=== PATIENT | female | born 1945 | race Caucasian/White ===

== ENCOUNTER → 2017-01-04 | Outpatient (CLI) | payer MEDICARE ==
[~2017-01-04] MED LIST: CALC-72 PO; DIPH25CA46 PO; FISH1CAP PO; GLUC-88 PO; LEVO50TA5 PO; LISI-170 PO; MULT-658 PO; OMEP20TA62 PO; VIT-3 PO; VITA400C43 PO; ZOLP-413 PO; [UNRECOGNIZED DRUG - OTHER] PO; biotin PO; ginkgo biloba PO; potassium gluconate PO
== END | disposition home or self-care (01) ==
LOC: CFH 13:38
PROVIDERS: ATTEND Licensed Practical Nurse
DX: Z13.820 Encounter for screening for osteoporosis (principal); M85.88 Other specified disorders of bone density and structure, other site; N95.8 Other specified menopausal and perimenopausal disorders; C79.02 Secondary malignant neoplasm of left kidney and renal pelvis
CPT/HCPCS: 77080